=== PATIENT | male | born 1955 | race Caucasian/White ===

== ENCOUNTER 2019-07-31 12:24 | Outpatient (CLI) | payer MEDICARE, BC ==
--- NOTE | 2019-07-31 12:49 | RAD ---
XR Ankle Rt 3 View STANDARD INDICATION: Ankle injury. COMPARISON: None. FINDINGS: Bones: Intact. Ankle mortise: Symmetric. Talar Dome: Intact. Subtalar joint: Normal. Visualized hindfoot: Normal. Periarticular soft tissues: There is a moderate size enthesophyte off the plantar calcaneus. IMPRESSION: 1. No acute fracture or subluxation demonstrated.
--- NOTE | 2019-07-31 12:50 | RAD ---
XR Hand Rt 3 View STANDARD: 07/31/2019 12:00 AM CLINICAL INDICATION: Osteoarthrosis of the right hand COMPARISON: None. FINDINGS: Bones: Bone mineralization appears within normal limits. No acute fracture or subluxation demonstrat ed. Joints: There is advanced first CMC and moderate STT osteoarthrosis. There is moderate DRUJ osteoarth rosis. There is scattered mild IP osteoarthrosis. Soft Tissue: Soft tissues are normal appearing. IMPRESSION: Scattered osteoarthrosis of the right hand.
== END 2019-07-31 12:25 | disposition home or self-care (01) ==
LOC: BICRAD 12:24
PROVIDERS: ATTEND Internal Medicine Rheumatology
DX: M17.11 Unilateral primary osteoarthritis, right knee (principal); M25.571 Pain in right ankle and joints of right foot; M19.041 Primary osteoarthritis, right hand

== ENCOUNTER 2020-09-12 07:59 | Outpatient (CLI) | payer MEDICARE ==
[2020-09-12] MEDS ORDERED: Iopamidol 370 76% 150 ML VIAL FS ONE (13:27)
== END 2020-09-12 08:00 | disposition home or self-care (01) ==
LOC: BICCT 07:59
PROVIDERS: ATTEND Physician Assistant Medical
DX: D69.6 Thrombocytopenia, unspecified (principal); R10.32 Left lower quadrant pain; R31.9 Hematuria, unspecified; N20.1 Calculus of ureter
CPT/HCPCS: 74178; 82565